=== PATIENT | female | born 1945 | race Caucasian/White ===

== ENCOUNTER → 2016-11-22 | Day surgery (SDC) | payer OTHER ==
[~2016-11-22] MED LIST: ACIDOPHILUS1 TAB PO; ASPIRIN81 MG PO; ATACAND HCT 32/1 TAB PO; ATARAX PO; BACLOFEN10 MG PO; CALCIUM 500 + D1 TAB PO; CALCIUM 600 +1 EAC9 PO; CENTRUM SILVER PO; CLOTRIMAZOLE EXT; COREG PO; DETROL LA PO; IBUPROFEN PO; IMDUR-ER60 M1 PO; KEFLEX PO; KEFLEX500 M1 PO; KEFLEX500 MG PO; KRISTALOSE20 G/PK1 PO; LANTUS100 U/ML; LANTUS100 U/ML SUBQ; LIPITOR PO; LIPITOR40 MG PO; LOPRESSOR PO; LORTAB 7.5-3251 EACH PO; LOSARTAN-HCTZ1 EAC1 PO; LOSARTAN-HCTZ1 EAC2 PO; LOTRISONE CREAM15 GM; METFORMIN PO; MIRALAX119 GM PO; NASONEX17 GM; NEURONTIN PO; NOLVADEX PO; NORVASC10 MG PO; NOVOLIN 70/30 U13 ML SQ; NOVOLIN 70/30 V10 ML INJ; NOVOLOG100 U/ML SUBQ; OMEPRAZOLE20 M1 PO; PERCOCET5/325 PO; PLAVIX PO; PREVACID PO; PROVIGIL PO; REGLAN PO; SINGULAIR PO; SKELAXIN PO; SYNTHROID PO; VICODIN 5/500 T1 TAB PO; VIT E PO; VITAMIN C PO; VITAMIN C1000 M2 PO; WELLBUTRIN XL PO
--- NOTE | ~2016-11-22 | OR ---
Unit #: [id number] #: [id number] Patient: BEATRIZ MCKEON [id number] [address] [address] [id number] O MR#: [id number] NAME: BEATRIZ MCKEON ROOM: Date of Procedure: 11/22/2016 Admission Date: 11/22/2016 Surgeon: Dameon Tinsley M.D. : 1945 Attending Physician: Dameon Tinsley M.D. Primary Care Physician: Usha Vyas M.D. PROCEDURE OPERATIVE NOTE PREOPERATIVE DIAGNOSIS Necrotically infected sebaceous abscess left upper back. POSTOPERATIVE DIAGNOSIS Necrotically infected sebaceous abscess left upper back. PROCEDURE PERFORMED Excision of necrotic chronically infected sebaceous cyst left upper back with layered closure. ANESTHESIA Monitor anesthesia care with 1% Xylocaine plain local anesthesia. FINDINGS The area was circumferentially excised to normal viable tissue and was closed with a layered closure. SPECIMEN Sent to pathology. COMPLICATIONS None apparent. CONDITION Patient tolerated the procedure well. INDICATIONS The patient is a 71-year-old white female who has a necrotic chronically infected sebaceous cyst to the left upper back. She presents at this time for excision for pathologic diagnosis and treatment. OPERATION After obtaining informed consent, as well as receiving preoperative antibiotics, the patient was brought to the operating room and after being placed in the right lateral decubitus position with an axillary roll in the place and all pressure points carefully padded, the patient had monitored anesthesia care administered. Her left upper back was prepped and draped in a sterile fashion. The area was anesthetized with 1% Xylocaine plain local anesthesia. An elliptical incision was made transversely around the area. The normal viable tissue was taken down through the skin with the knife and through the subdermal tissues and subcutaneous tissues with electrocautery with good hemostasis. A specimen Unit #: [id number] #: [id number] Patient: BEATRIZ MCKEON was sent to pathology. The wound was copiously irrigated. All irrigation was evacuated. After good hemostasis the deep tissues were reapproximated with interrupted 3-0 Vicryl suture. The skin was closed with a running 3-0 Nylon suture. A dry dressing was applied, followed by a Tegaderm dressing. Needle counts, sponge counts, and instrument counts were all correct as reported by the scrub nurse x2. The patient went from the operating room to the recovery room in stable condition. Dictated by... Lydia Smith/rich TD: 11/22/2016 11:42 JOB #: [id number] CC: [facility] PROCEDURE OPERATIVE NOTE Page 1 of 1 X Dameon Tinsley MD X PROCEDURE OPERATIVE NOTE
--- NOTE | ~2016-11-22 | EKG ---
PATIENT: BEATRIZ MCKEON UNIT #: [id number] Ventricular Rate: 70 BPM Atrial Rate: 70 BPM P-R Interval: 130 ms QRS Duration: 102 ms Q-T Interval: 442 ms QTC Calculation(Bezet): 477 ms P [place]: 32 degrees Calculated R [place]: 9 degrees Calculated T [place]: 82 degrees Diagnosis Line: Normal sinus rhythm Diagnosis Line: Prolonged QT Diagnosis Line: Abnormal ECG Diagnosis Line: No previous ECGs available Diagnosis Line: Confirmed by URI MONTAÑO MD ([id number]) on 11/22/2016 Diagnosis Line: 9:43:40 AM INTERPRETING MD: DANYEL ANDERSON
[2016-11-22 05:55] LABS: HEMATOCRIT 42.2 % (35.0-45.0); HEMOGLOBIN 13.6 gm/dL (12.0-16.0); MEAN CELL VOLUME 91.5 FL (83-96); MEAN CORPUSCULAR HEMOGLOBIN 29.5 PG (28-34); MEAN CORPUSCULAR HGB CONC 32.3 g/dL (30-36); MEAN PLATELET VOLUME 8.9 FL (6.5-11.5); RED BLOOD COUNT 4.61 X10e (3.90-5.30); RED CELL DISTRIBUTION WIDTH 14.3 % (11.0-15.5); WHITE BLOOD COUNT 7.5 X10e3 (4.0-10.5)
[2016-11-22 06:23] LABS: CALCIUM SERUM 9.9 mg/dL (8.4-10.2); CREATININE SERUM 0.8 mg/dL (0.6-1.4); GLOM FILT RATE Estimated 75.3 mL/min (>60); POTASSIUM 4.3 mmol/L (3.5-5.1)
== END | disposition home or self-care (01) ==
LOC: CSUR 05:26
PROVIDERS: Surgery
DX: L72.0 Epidermal cyst (principal); E11.9 Type 2 diabetes mellitus without complications; K21.9 Gastro-esophageal reflux disease without esophagitis; E03.9 Hypothyroidism, unspecified; Z86.73 Personal history of transient ischemic attack (TIA), and cerebral infarction without residual deficits; Z88.1 Allergy status to other antibiotic agents; Z88.5 Allergy status to narcotic agent; Z88.8 Allergy status to other drugs, medicaments and biological substances; Z79.2 Long term (current) use of antibiotics; Z79.4 Long term (current) use of insulin; Z79.82 Long term (current) use of aspirin; Z79.899 Other long term (current) drug therapy; Z90.710 Acquired absence of both cervix and uterus; Z98.890 Other specified postprocedural states
CPT/HCPCS: 80048; 82947; 85027; 88304; 88312; 93005; J0690; J3010

== ENCOUNTER → 2017-03-06 | Outpatient (CLI) | payer OTHER ==
[2017-03-06 15:38] LABS: CALCIUM SERUM 9.6 mg/dL (8.4-10.2); GLOM FILT RATE Estimated 57.5 mL/min (>60); POTASSIUM 4.1 mmol/L (3.5-5.1)
== END | disposition home or self-care (01) ==
LOC: CAMB 13:51 → EDSTATUS 15:00
PROVIDERS: Surgery
DX: Z01.812 Encounter for preprocedural laboratory examination (principal)
CPT/HCPCS: 36415; 80048

== ENCOUNTER → 2017-03-07 | Day surgery (SDC) | payer MEDICARE ==
--- NOTE | ~2017-03-07 | OR ---
Unit #: [id number] #: [id number] Patient: BEATRIZ MCKEON [id number] [address] [address] [id number] O MR#: [id number] NAME: BEATRIZ MCKEON ROOM: Date of Procedure: 03/07/2017 Admission Date: 03/07/2017 Surgeon: Dameon Tinsley M.D. : 1945 Attending Physician: Dameon Tinsley M.D. Primary Care Physician: Usha Vyas M.D. OPERATIVE REPORT PREOPERATIVE DIAGNOSIS Chronically inflamed sebaceous cyst, right labia. POSTOPERATIVE DIAGNOSIS Chronically inflamed sebaceous cyst, right labia. PROCEDURE PERFORMED Excision of chronically inflamed sebaceous cyst, right labia, 2.5 cm with layered closure. ANESTHESIA General LMA anesthesia with 0.5% Marcaine plain local anesthesia. FINDINGS The area was excised and closed with a layered closure and sealed with Dermabond. SPECIMENS Sent to Pathology. COMPLICATIONS None apparent. CONDITION The patient tolerated the procedure well. INDICATIONS FOR PROCEDURE The patient is a 71-year-old white female, who presents at this time with a chronically inflamed sebaceous cyst of the right labia. DESCRIPTION OF PROCEDURE After obtaining informed consent as well as receiving preoperative antibiotics, the patient was brought to the operating room and after adequate general LMA anesthesia was obtained, was carefully placed into the Jamar stirrups with no pressure on the calf and padding placed over the area of the common peroneal nerve. Her perineum and labia were prepped and draped in a sterile fashion. The towels and drapes were stapled around the area to isolate the area. An elliptical incision was made with a knife and taken down through the skin and subdermal tissues with electrocautery excising the area completely with good hemostasis. The wound was copiously irrigated. All irrigation was evacuated. The area was infiltrated with 0.5% Marcaine plain local anesthesia. The deep Unit #: [id number] #: [id number] Patient: BEATRIZ MCKEON tissues were reapproximated with interrupted 3-0 Vicryl suture and the skin was closed with 4-0 Vicryl subcuticular stitch. An occlusive dressing of Dermabond was placed. Needle counts, sponge counts, and instrument counts were all correct as reported by the scrub nurse x2. The patient went from the operative room to the recovery room in stable condition. Dictated by... Lydia Smith/marissa TD: 03/07/2017 12:50 JOB #: [id number] CC: [facility] Usha Vyas M.D. OPERATIVE REPORT Page 1 of 1 X Dameon Tinsley MD X PROCEDURE OPERATIVE NOTE
== END | disposition home or self-care (01) ==
LOC: CSUR 08:29
DX: L72.0 Epidermal cyst (principal); L72.3 Sebaceous cyst; R22.2 Localized swelling, mass and lump, trunk; I10 Essential (primary) hypertension; E11.9 Type 2 diabetes mellitus without complications; E03.9 Hypothyroidism, unspecified; K21.9 Gastro-esophageal reflux disease without esophagitis; G47.30 Sleep apnea, unspecified; Z79.02 Long term (current) use of antithrombotics/antiplatelets; Z79.4 Long term (current) use of insulin; Z79.82 Long term (current) use of aspirin; Z79.899 Other long term (current) drug therapy; Z88.2 Allergy status to sulfonamides; Z88.5 Allergy status to narcotic agent; Z88.8 Allergy status to other drugs, medicaments and biological substances; Z90.710 Acquired absence of both cervix and uterus
CPT/HCPCS: 82947; 88304; J0131; J0690; J2250; J2370; J3010